=== PATIENT | male | born 1990 ===

== ENCOUNTER 2017-10-06 14:47 | Outpatient (CLI) | payer OTHER ==
[~2017-10-06] VITALS: Ht 177.8 cm; Wt 77.1 kg
== END 2017-10-06 15:10 | disposition home or self-care (01) ==
LOC: OFIC 805 14:47
DX: J30.89 Other allergic rhinitis (principal); K21.9 Gastro-esophageal reflux disease without esophagitis; J38.2 Nodules of vocal cords

== ENCOUNTER 2017-11-16 14:59 | Outpatient (CLI) | payer OTHER ==
[~2017-11-16] VITALS: Ht 152.4 cm; Wt 77.1 kg
== END 2017-11-16 15:15 | disposition home or self-care (01) ==
LOC: OFIC 805 14:59
DX: K21.9 Gastro-esophageal reflux disease without esophagitis (principal); R59.0 Localized enlarged lymph nodes; J30.89 Other allergic rhinitis; R49.0 Dysphonia